=== PATIENT | female | born 2000 | race Caucasian/White ===

== ENCOUNTER 2019-04-02 03:03 | Emergency (ER) | payer BC, OTHER ==
[~2019-04-02] VITALS: Ht 162 cm; Wt 59.0 kg
[2019-04-02] MEDS ORDERED: methylPREDNISolone 125 MG (Solu-MEDROL) VIAL IV STA (03:13)
[2019-04-02] MEDS ORDERED: FAMOTIDINE 20MG/2ML IV (PEPCID) IV STA (03:13)
[2019-04-02] MEDS ORDERED: diphenhydrAMINE 50 MG/ML INJ (BENADRYL) IV STA (03:13)
--- NOTE | 2019-04-02 03:36 | ED Integumentary General ---
General Chief Complaint: Allergic Reaction Stated Complaint: RASH ON NECK &, ALLERGIC RXN, FACE & LIPS SWELLING Nursing Triage Note: Patient advises that she noticed several bug bites on her leg saturday evening and saturday began developing hives on her legs. She advises she was seen at the [facility] and received a steroid shot as well as a perscription for pepcid. She advised she took benadryl at approximately 2200 prior to bed. She states her face has begun swelling and that she feels as though her symptoms are getting worse. Source: patient History of Present Illness Date Seen by Provider: Apr 02, 2019 Time Seen by Provider: 03:10 Initial Comments PT ARRIVES VIA POV STATES SHE WOKE UP SATURDAY MORNING AND THOUGHT SHE HAD "BUG BITES" ON HER LEGS STATES ON SATURDAY SHE STARTED GETTING A SMALL RASH ON HER LEGS, BUT WAS MUCH WORSE BY SATURDAY EVENING WENT TO [facility] SATURDAY MORNING 04/01/19 AND GOT A SHOT OF STEROIDS, AND RASH WENT AWAY COMPLETELY. WAS GIVEN RX FOR PEPCID 20 MG DAILY PT STATES TONIGHT, THE RASH IS BACK AND IS ON HER LEGS/THIGHS/GROIN, BACK, NECK, FACE--AND HER LIPS ARE STARTING TO SWELL AND SHE IS HAVING SWELLING AROUND HER EYES. NO SWELLING OF TONGUE OR THROAT NO DIFFICULTY SWALLOWING OR BREATHING AND NO WHEEZING NO SWELLING OF HANDS OR FEET, BUT STATES HER HANDS--ESPECIALLY HER PALMS--ARE VERY ITCHY AND FEEL TIGHT TOOK 25 MG OF BENADRYL AT 2200--NO BETTER, AND CONTINUES TO WORSEN NO HISTORY OF SIMILAR NO NEW KNOWN PRODUCTS, MEDICATIONS, FOODS/DRINKS OR EXPOSURES STATES HER ONLY MEDICATION IS SPRINTEC, WHICH WAS CHANGED APPROXIMATELY 4 MONTHS AGO. PT IS [employer] FROM [place], [place] Allergies and Home Medications Allergies Coded Allergies: Cephalosporins (Verified Allergy, Unknown, 04/02/19) erythromycin base (Verified Allergy, Unknown, 04/02/19) Home Medications Methylprednisolone 4 Mg Tab.ds.pk, 4 MG PO UD Prescribed by: EVENS WELCH on 04/02/19 3760 Patient Home Medication List Home Medication List Reviewed: Yes Review of Systems Review of Systems Constitutional: no symptoms reported; No dizziness EENTM: see HPI; No hoarseness, No mouth swelling, No nose congestion, No throat swelling Respiratory: no symptoms reported; No cough, No short of breath, No wheezing Cardiovascular: no symptoms reported Gastrointestinal: no symptoms reported Genitourinary: no symptoms reported Musculoskeletal: no symptoms reported Skin: see HPI, pruritus, rash Psychiatric/Neurological: No Symptoms Reported Endocrine: No Symptoms Reported Hematologic/Lymphatic: No Symptoms Reported Past [id number] Hx Patient Social History Recent Foreign Travel: No Contact w/Someone Who Travel: No Recent Infectious Disease Expo: No Recent Hopitalizations: No Seasonal Allergies Seasonal Allergies: No Past Medical History Surgeries: No Respiratory: No Cardiac: No Neurological: No Reproductive Disorders: No Genitourinary: No Gastrointestinal: No Musculoskeletal: No Endocrine: No HEENT: No Cancer: No Psychosocial: No Integumentary: No Blood Disorders: No Physical Exam Vital Signs Vital Signs - First Documented 04/02/19 03:14 Temp 36.7 Pulse 109 Resp 16 B/P (MAP) 143/95 Pulse Ox 98 O2 Delivery Room Air Capillary Refill : General Appearance: WD/WN, no apparent distress HEENT: PERRL/EOMI, pharynx normal, other (MILD PERIORBITAL SWELLING AND SWELLING OF LIPS. 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 WITH MILD PERIORBITAL SWELLING AND SWELLING TO LIPS. ) Progress/Results/Core Measures Results/Orders My Orders Orders - EVENS WELCH DO Ed Iv/Invasive Line Start (04/02/19 03:13) Famotidine Injection (Pepcid Injection) (04/02/19 03:13) Diphenhydramine Injection (Benadryl Inje (04/02/19 03:13) Methylprednisolone Sod Succ (Solu-Medrol (04/02/19 03:13) Vital Signs/I&O 04/02/19 04/02/19 03:14 03:14 Temp 36.7 Pulse 109 109 Resp 16 18 B/P (MAP) 143/95 143/95 Pulse Ox 98 O2 Delivery Room Air Room Air Progress Progress Note : Progress Note GIVEN SOLU-MEDROL, PEPCID AND BENADRYL SYMPTOMS COMPLETELY GONE, AND LIPS AND PERIORBITAL AREA ARE LESS SWOLLEN. PT STATES HER HANDS DO NOT ITCH OR FEEL TIGHT ANYMORE Departure Impression Primary Impression: Hives of unknown origin Disposition: HOME, SELF-CARE Condition: Stable Departure-Patient Inst. Referrals: [facility] [facility] (PCP/Family) Primary Care Physician Patient Instructions: Hives (DC) Add. Discharge Instructions: LOTS OF CLEAR LIQUIDS NO NEW FOODS, DRINKS, MEDICATIONS OR PRODUCTS TAKE PEPCID 40 MG DAILY TAKE CLARITIN IN THE MORNING AND BENADRYL IN THE EVENING NEEDED FOR RASH AND ITCHING FOLLOW UP WITH [facility] ON SATURDAY IF NO BETTER RETURN TO ER IF WORSE All discharge instructions reviewed with patient and/or family. Voiced understanding. Scripts Methylprednisolone (Medrol) 4 Mg Tab.ds.pk 4 MG PO UD, #1 PKG Prov: EVENS WELCH DO 04/02/19 EVENS WELCH DO Apr 02, 2019 03:35
[2019-04-02] MEDS ORDERED: METH4TAB PO (03:41)
== END 2019-04-02 04:33 | disposition home or self-care (01) ==
LOC: ER 03:08
DX: L50.9 Urticaria, unspecified (principal); Z88.1 Allergy status to other antibiotic agents